=== PATIENT | female | born 1990 | race Caucasian/White ===

== ENCOUNTER → 2020-10-25 15:41 | Outpatient (CLI) | payer OTHER, SELFPAY ==
--- NOTE | 2020-10-25 15:42 | DI.US.S_ITS ---
PROCEDURE: US OB <= 14 WEEKS FETUS INDICATIONS: Viability early dating OUTSIDE/PRIOR DATING DATA: Last menstrual period (LMP): 08/02/2020 LMP-based estimated date of delivery (PEDRO): 05/09/2021. First dating scan (date and location): 10/25/2020. Estimated date of delivery (PEDRO) from first dating scan: 05/04/2021. TECHNIQUE: Real-time scanning was performed of the fetus and maternal pelvic organs, with image documentation. Endovaginal scanning was also performed to better visualize the fetus and maternal ovaries. COMPARISON: None. FINDINGS: Embryo: [place]-rump length measures 6.4 cm corresponding to 12 weeks 5 days with PEDRO of 05/04/2021. Embryonic heart rate measures 163 beats per minute. Measurement variability in dating: +/- 4 weeks by LMP, +/- 7 days by mean sac diameter (use before 6 weeks gestation if crown-rump length not able to be measured), +/- 5 days by crown-rump length (up to 8 weeks 6 days gestation), +/- 7 days by crown-rump length (up to 13 weeks 6 days gestation). Maternal organs: Ovaries within normal limits, with right corpus luteal cyst measuring 1.9 cm . IMPRESSION: 12 week 5 day single living IUP corresponding to ultrasound PEDRO of 05/04/2021. Dictated by: Lamonte C[place] Interpreted: Cary Dow MD on 10/26/2020 at 9:00 Approved by: Cary Dow M.D. on 10/26/2020 at 10:54
== END ==
PROVIDERS: PCP Family Medicine; Referring Provider Obstetrics & Gynecology; Visit Provider Obstetrics & Gynecology
DX: Z34.81 Encounter for supervision of other normal pregnancy, first trimester (principal); Z3A.12 12 weeks gestation of pregnancy
CPT/HCPCS: 76801

== ENCOUNTER → 2020-10-27 10:16 | Outpatient (CLI) | payer OTHER, SELFPAY ==
[2020-10-27 11:20] LABS: Add Manual Diff / Slide Review NO; Basophils Absolute Auto 0 /uL (0-100); Basophils Percent Auto 0.6 % (0-2); Eosinophils Absolute Auto 100 /uL (0-450); Eosinophils Percent Auto 1.9 % (2-4); Hematocrit 36.8 % (36-46); Hemoglobin 12.7 g/dL (12.0-16.0); Lymphocytes Absolute Auto 1500 /uL (1100-4500); Mean Corpuscular HGB Conc 34.6 % (30-36); Mean Corpuscular Hemoglobin 30.5 PG (26-34); Mean Corpuscular Volume 88.2 fL (80-100); Monocytes Absolute Auto 400 /uL (0-900); Monocytes Percent Auto 6.2 % (3-14); Neutrophils Absolute Auto 4700 /uL (1500-7000); Neutrophils Percent Auto 69.3 % (50-75); Platelet Count 317 X10^3/uL (150-400); Red Blood Cell Count 4.17 X10^6/uL (4.0-5.2); Red Cell Distribution Width 12.9 % (11.6-14.8); White Blood Cell Count 6.8 X10^3/uL (4.5-11.0)
[2020-10-27 11:24] LABS: Appearance Urine UA CLEAR; Bilirubin Urine UA NEGATIVE (NEGATIVE); Color Urine UA YELLOW; Glucose Urine UA NEGATIVE (Negative); Ketones Urine UA NEGATIVE (NEGATIVE); Leukocyte Esterase Urine UA NEGATIVE (NEGATIVE); Nitrite Urine UA NEGATIVE (Negative); Occult Blood Urine UA NEGATIVE (Negative); Protein Urine UA NEGATIVE (Negative); Specific Gravity Urine UA <=1.005 (1.000-1.035); Urobilinogen Urine UA 0.2 E.U./dL (0.2)
[2020-10-28 04:39] LABS: RPR Screen Non Reactive (Non Reactive)
[2020-10-28 06:08] LABS: Varicella IgG Antibody 451 index (Immune >165)
[2020-10-28 16:44] LABS: HIV 1 & 2 Ab/Ag 4th Gen Combo NEGATIVE (NEGATIVE); Hep C Virus Ab w/Reflex Quant NEGATIVE s/c (NEGATIVE); Hepatitis B Surface Antigen NEGATIVE s/c (NEGATIVE); Rubella Antibody IgG 23.9 IU/mL (>15)
== END ==
PROVIDERS: PCP Family Medicine; Referring Provider Obstetrics & Gynecology; Visit Provider Obstetrics & Gynecology
DX: Z34.81 Encounter for supervision of other normal pregnancy, first trimester (principal)
CPT/HCPCS: 36415; 80055; 81003; 86787; 86803; 86850; 86900; 86901; 87389

== ENCOUNTER → 2020-11-24 16:07 | Outpatient (CLI) | payer OTHER, SELFPAY ==
[2020-11-26 20:46] LABS: AFP Value 38.9 ng/mL (.); Gest Age on Col Date 16.3 weeks (.); Insulin Dep Diabetes No (.); OSBR Risk 1IN 6704 (.); Results Report (.); Test Results *Screen Negative* (.)
== END ==
PROVIDERS: PCP Family Medicine; Referring Provider Obstetrics & Gynecology; Visit Provider Obstetrics & Gynecology
DX: Z34.82 Encounter for supervision of other normal pregnancy, second trimester (principal); Z3A.16 16 weeks gestation of pregnancy
CPT/HCPCS: 36415; 82105

== ENCOUNTER → 2020-11-30 16:17 | Outpatient (CLI) | payer OTHER, SELFPAY ==
[2020-11-30] MEDS: COVID-19 VACC #1, MRNA(MOD) 100 MCG/0.5 ML VIAL IM (16:25)
== END ==
PROVIDERS: PCP Family Medicine; Visit Provider Internal Medicine
DX: Z23 Encounter for immunization (principal)
CPT/HCPCS: 0011A; 91301

== ENCOUNTER → 2020-12-23 15:51 | Outpatient (CLI) | payer OTHER, SELFPAY ==
--- NOTE | 2020-12-23 15:53 | DI.US.S_ITS ---
PROCEDURE: US OB >= 14 WEEKS FETUS INDICATIONS: Anatomy scan OUTSIDE/PRIOR DATING DATA: Last menstrual period (LMP): 08/02/2020 . LMP-based estimated date of delivery (PEDRO): 05/09/2021 . First dating scan (date and location): 12 weeks 5 days . Estimated date of delivery (PEDRO) from first dating scan: 05/04/2021. TECHNIQUE: Real-time scanning was performed of the fetus, with image documentation and biometric measurements. COMPARISON: None. FINDINGS: General: A single living intrauterine gestation is present. Presentation: Breech. Placenta: Placental position is posterior , without previa. Amniotic fluid index: 11.5 cm, normal range is 5-24 cm. heart rate: 147 beats per minute. Maternal cervical canal: 5.4 cm long. Normal lower limit is 2.5 cm. biometrics: Biparietal diameter: 4.8 centimeters: 20 weeks 3 days Head circumference: 18.4 centimeters: 20 weeks 5 days Abdominal circumference: 16.4 centimeters: 21 weeks 3 days Femur length: 3.5 centimeters: 20 weeks 0 days Estimated gestational age from initial scan: not applicable. Composite gestational age from present scan: 20 weeks 6 days Estimated weight and percentile: 403 grams, 45th percentile Measurement variability for biometric dating: +/- 7 days from 14 weeks to 15 weeks 6 days gestation, +/- 10 days from 16 weeks to 21 weeks 6 days gestation, +/- 2 weeks from 22 weeks to 27 weeks 6 days gestation, +/- 3 weeks for 28 weeks gestation or later. Anatomic survey: Neuro: Ventricles are non-dilated at less than 10 mm. Cisterna magna is normal at 3-11 mm. Cerebellum is normal in size and morphology. Nuchal skin fold: Normal at less than 6 mm between 14-21 weeks gestational age. Face: Nose and lips, facial profile are normal. Spine: No evidence for spina bifida. Heart: 4-chambered heart is present, with normal ventricular outflow tracts. Diaphragm: Diaphragm is intact. Stomach: Left-sided stomach is present. Kidneys: No hydronephrosis. Normal is less than 5 mm in 2nd trimester, less than 7 mm in 3rd trimester. Cord: 3-vessel cord has orthotopic insertion. Bladder: Normal in size. Extremities: All 4 extremities identified. IMPRESSION: 1. 21 week 1 day fetus. 2. Normal anatomy. 3. Normal ANTHONY measuring 11.5 centimeters. 4. Breech presentation. Dictated by: Juan Carvalho M.D. on 12/24/2020 at 0:00 Approved by: Juan Carvalho M.D. on 12/24/2020 at 0:09
== END ==
PROVIDERS: PCP Family Medicine; Referring Provider Obstetrics & Gynecology; Visit Provider Obstetrics & Gynecology
DX: Z34.82 Encounter for supervision of other normal pregnancy, second trimester (principal); Z3A.20 20 weeks gestation of pregnancy
CPT/HCPCS: 76811

== ENCOUNTER → 2020-12-29 08:56 | Outpatient (CLI) | payer OTHER, SELFPAY ==
[2020-12-29] MEDS: COVID-19 VACC #2, MRNA(MOD) 100 MCG/0.5 ML VIAL IM (09:05)
== END ==
PROVIDERS: PCP Family Medicine; Visit Provider Internal Medicine
DX: Z23 Encounter for immunization (principal)
CPT/HCPCS: 0012A; 91301

== ENCOUNTER → 2021-01-25 15:09 | Outpatient (CLI) | payer OTHER, SELFPAY ==
[2021-01-25 16:41] LABS: Hematocrit 32.4 % (36-46); Hemoglobin 11.2 g/dL (12.0-16.0)
[2021-01-25 16:59] LABS: GTT (PREG) 1 Hour PP 50gm Dose 98 mg/dL (76-139)
== END ==
PROVIDERS: PCP Family Medicine; Referring Provider Obstetrics & Gynecology; Visit Provider Obstetrics & Gynecology
DX: Z34.82 Encounter for supervision of other normal pregnancy, second trimester (principal); Z3A.26 26 weeks gestation of pregnancy
CPT/HCPCS: 36415; 82950; 85014; 85018

== ENCOUNTER → 2021-04-05 17:21 | Outpatient (CLI) | payer OTHER, SELFPAY ==
[2021-04-06 12:33] LABS: Strep Grp B PCR NEG for Grp B Strep
== END ==
PROVIDERS: PCP Family Medicine; Visit Provider Obstetrics & Gynecology
DX: Z34.83 Encounter for supervision of other normal pregnancy, third trimester (principal); Z3A.35 35 weeks gestation of pregnancy
CPT/HCPCS: 87653

== ENCOUNTER → 2021-05-02 08:50 | Outpatient (CLI) | payer OTHER, SELFPAY ==
[2021-05-02 16:51] LABS: COVID19 -Nasal RAPID Negative (Negative)
== END ==
PROVIDERS: PCP Family Medicine; Visit Provider Obstetrics & Gynecology
DX: Z20.822 Contact with and (suspected) exposure to COVID-19 (principal); Z01.812 Encounter for preprocedural laboratory examination
CPT/HCPCS: 87635

== ENCOUNTER 2021-05-03 05:39 | Inpatient (IN) | payer OTHER, SELFPAY ==
[2021-05-03] VITALS (8 sets, daily range): BP systolic 95–117; BP diastolic 60–78; PULSE 84–104; RESP 8–12; TEMP 36.1; O2SAT 98–99
[2021-05-03 06:55] LABS: Add Manual Diff / Slide Review NO; Basophils Absolute Auto 100 /uL (0-100); Basophils Percent Auto 0.9 % (0-2); Eosinophils Absolute Auto 100 /uL (0-450); Eosinophils Percent Auto 1.4 % (2-4); Hematocrit 35.7 % (36-46); Hemoglobin 12.3 g/dL (12.0-16.0); Lymphocytes Absolute Auto 1600 /uL (1100-4500); Lymphocytes Percent Auto 15.6 % (25-40); Mean Corpuscular HGB Conc 34.6 % (30-36); Mean Corpuscular Hemoglobin 30.8 PG (26-34); Mean Corpuscular Volume 88.9 fL (80-100); Monocytes Absolute Auto 700 /uL (0-900); Monocytes Percent Auto 6.5 % (3-14); Neutrophils Absolute Auto 7900 /uL (1500-7000); Neutrophils Percent Auto 75.6 % (50-75); Platelet Count 279 X10^3/uL (150-400); Red Blood Cell Count 4.01 X10^6/uL (4.0-5.2); White Blood Cell Count 10.4 X10^3/uL (4.5-11.0)
--- NOTE | 2021-05-03 07:31 | SUR.OPER ---
Supine on Padded OR bed, head on pillow, safety belt at thigh, arms secured on padded arm boards at <90 degrees abduction. Bump under right buttock. Legs uncrossed with pillow under knees, gel pad to heels, tape over blanket to lower legs.
--- NOTE | 2021-05-03 07:40 | P.HP_ITS ---
History of Present Illness History of Present Illness Date Patient Seen: 05/03/21 Time Patient Seen: 07:40 Chief complaint: C Section Narrative: Patient is a 31-year-old 2 para 1 at 39 weeks gestation, with a previous section, who presents for repeat section. Patient History Medical History (Updated 10/26/20 @ 16:11 by Tiffanie Dubon MD) Acne (~2002) Anemia (~2017) Anxiety (~2010) Carpal tunnel syndrome (~2017) Chicken pox Eczema (~2002) Herpes (~2007) Scoliosis Wears glasses Surgical History (Updated 10/26/20 @ 16:10 by Tiffanie Dubon MD) Anesthesia History of (~08/26/18) Family & Social History Family History (Updated 10/09/20 @ 20:51 by Ida Goodwin) Grandmother Alzheimer disease Grandfather History of emphysema Grandmother No problems noted. Tobacco & Substance use: Smoking Status Never smoker Meds Home Medications and Allergies Home Medications Medication Instructions Recorded Confirmed Type docosahexaenoic acid 200 mg 1 mg PO DAILY 09/20/20 05/03/21 History capsule ( DHA) prenat.vits,loi,[id number]-pdjm-ivdsw 1 tab PO DAILY 09/20/20 05/03/21 History valacyclovir 500 mg tablet 500 mg PO DAILY #30 tab 03/22/21 05/03/21 Rx (Valtrex) Allergies Allergy/AdvReac Type Severity Reaction Status Date / Time No Known Allergies Allergy Uncoded 05/03/21 06:55 Exam Vital Signs (past 8 hours): - 05/03/21 06:55 Blood Pressure 116/78 Narrative Exam Narrative: HEENT: No thyromegaly, no anterior cervical or supraclavicular lymphadenopathy. Lungs:Clear to auscultation bilaterally, no wheezes. Cardiovascular: Regular rate and rhythm, no murmurs, rubs, or gallops. Abdomen: Well-healed Pfannenstiel scars. No hepatosplenomegaly. No masses palpable. External genitalia: Normal Vagina: Normal Cervix: Nulliparous Extremities: No edema, 1+ DTRs Objective Labs Result Diagrams: 05/03/21 06:30 Labs: Laboratory Results - last 24 hr 05/03/21 05/03/21 06:30 06:30 WBC 10.4 RBC 4.01 Hgb 12.3 Hct 35.7 L MCV 88.9 MCH 30.8 MCHC 34.6 RDW 13.0 Plt Count 279 Neut % (Auto) 75.6 H Lymph % (Auto) 15.6 L [place] % (Auto) 6.5 Eos % (Auto) 1.4 L Baso % (Auto) 0.9 Neut # (Auto) 7900 H Lymph # (Auto) 1600 [place] # (Auto) 700 Eos # (Auto) 100 Baso # (Auto) 100 Blood Type A Positive Antibody Screen Negative Assessment & Plan Assessment & Plan narrative: Assessment: 31-year-old 2 para 1 at 39 weeks gestation with a previous section Plan: Repeat low-transverse section The risks, benefits, and alternatives to the procedure were explained to the patient. The risks including bleeding, infection, injury to the bowel, bladder, or ureters. She understands these risks and agrees to proceed. A full par Q was held and consent form was signed. COVID-19 COVID-19 status: Negative Result date/Date tested (Pos, Neg/Pending): 05/02/21 Time Spent With Patient Time with patient: 15-24 minutes
--- NOTE | 2021-05-03 07:42 | PM.PREOP ---
Pre-operative Note COVID-19 COVID-19 status: Negative Result date/Date tested (Pos, Neg/Pending): 05/02/21 Interval Note History & Physical reviewed/Exam performed by Physician: Yes Changes to H&P: No H&P completed within 30 days and has changed as indicated here:: 05/03/21
[2021-05-03] MEDS: CEFAZOLIN 1 GM VIAL 2 GM IV (07:55)
[2021-05-03] MEDS: TRIAMCINOLONE 40 MG/ML VIAL 80 MG IM (08:20)
[2021-05-03] MEDS: LACTATED RINGERS 1,000 ML 100 ML IV (08:22)
--- NOTE | 2021-05-03 08:59 | PM.OBCS.1 ---
Operative Date/Time/Diagnoses Date of procedure: 05/03/21 Time of procedure: 08:59 Pre-op diagnosis: 39 weeks gestation Previous section Keloid scar Post-op diagnosis: same Procedure & Clinicians Procedure: Repeat low-transverse section Excision of scar Same procedure as scheduled: Yes Indications: 39 weeks gestation Previous section Keloid scar Surgeon: Tiffanie Dubon Click Yes if Unassisted: No Supervisor Denture Department: Alex Beaulieu Reason for Supervisor Denture Department: The executive assistant to president retracted and cut suture. He assisted with delivery of the baby and closure of the abdomen. He closed the contralateral fascial incision. Anesthesia Type: Spinal (With Duramorph) Operative Notes Findings: Live male infant in the [place] presentation Loose nuchal cord x1 Normal uterus, tubes, and ovaries Keloid of the Pfannenstiel scar Scar tissue in the subcutaneous layer and on the fascial layer Closure Type: primary Specimen(s): cord pH and placenta Intraoperative meds administered: Duramorph and Ketorolac Applied: Catheter (To continuous drainage) Estimated Blood Loss (mL): 400 Blood products transfused: none Procedure in detail: The patient was taken to the operating room where she was placed in the seated position. Spinal anesthesia with Duramorph was administered. The patient was then placed in the dorsal supine position with a leftward tilt. She was prepped and draped in the usual sterile fashion. A timeout was performed. After spinal analgesia was found to be adequate, an elliptical incision was made around the previous Pfannenstiel incision and the incision with a keloid excised. The incision was then carried through to the underlying layer of fascia. The fascia was nicked in the midline, and the incision extended bilaterally with the Vega scissors. The superior aspect of the fascial incision was grasped with a Ventress clamps, elevated, and the underlying rectus muscles dissected off sharply and bluntly. Attention was then turned to the inferior aspect of this incision which in a similar fashion was grasped with a Ventress clamps, elevated, and the underlying rectus muscles dissected off sharply and bluntly. The rectus muscles were in the midline. The peritoneum was identified, grasped between 2 hemostats, and entered sharply with the Metzenbaum scissors. This incision was extended superiorly and inferiorly with good visualization of the bladder. The bladder blade was inserted. The vesicouterine peritoneum was identified, grasped with the pickup, and entered sharply with the Metzenbaum scissors. This incision was extended bilaterally, and the bladder flap was created digitally. The bladder blade was reinserted. The lower uterine segment was incised in a transverse fashion with the scalpel. Upon entering the amniotic sac there was moderate amount of clear amniotic fluid. The 's head was delivered without difficulty. A loose nuchal cord x1 was reduced. The nose and mouth were suctioned with bulb suction. The remainder of the body delivered without difficulty. The cord was double clamped and cut after 1 minute. The was handed off to waiting RN and RT. The placenta was delivered manually. The uterus was cleared of all clots and debris. A ring forcep was used to open the cervix. The uterine incision was repaired with #1 chromic in a running interlocking fashion, and a second layer the same suture was used for an imbricating layer. Hemostasis was achieved. The tubes and ovaries were examined and were found to be normal. The gutters were cleared of all clots and debris. The bladder flap was reapproximated using 2-0 Vicryl in a running fashion. The parietal peritoneum was closed using 2-0 Vicryl in a running fashion. The fascia was reapproximated using 0 Vicryl in a running fashion. The subcutaneous layer was copiously irrigated with warm normal saline. 5 simple interrupted sutures of 3-0 Vicryl were placed to reapproximate the subcutaneous layer. The skin was closed with 4-0 Monocryl in a subcuticular fashion. 10 cc of a 10 mg Kenalog solution in 10 cc of normal saline was injected along the length of the incision with approximately 1 milligram/centimeter. Steri-Strips were placed. An Aquacel dressing was placed. The uterus was expressed of a small amount of old blood. Sponge, lap, and instrument counts were correct x-2. The patient tolerated the procedure well, and was taken to PACU in stable condition. Complications: none Baby 1: Gender: Male Presentation: vertex Position: Left Occiput Anterior Placental Delivery Description: Spontaneous Cord Vessel Description: 3 Vessels, Nuchal Cord, Loose and Reduced score (1 min): 8 score (5 min): 9 weight: 6 lb 11 oz Post-operative Condition: stable Disposition: PACU Aftercare: routine postop
[2021-05-03] MEDS: ONDANSETRON 4 MG/2 ML INJ IV (09:06)
[2021-05-03] MEDS: OXYCODONE/ACETAMINOPHEN 5/325 TABLET 1 TAB PO (09:17)
--- NOTE | 2021-05-03 09:38 | SUR.PHASEI ---
0901 Pt to PACU after spinal anesthesia with Dr Babcock. Pt awake, alert, breathing unassisted. Complains of very slight nausea.
--- NOTE | 2021-05-03 09:45 | SUR.PHASEI ---
Pt transferred to room 5, left with Tiffanie in stable condition, fundus check preformed by her, VSS. Bed locked, SCD's digital production artist light in reach.
[2021-05-03] MEDS: diphenhydrAMINE 50 MG/ML VIAL 25 MG IV ×3 (11:34→21:51)
[2021-05-03] MEDS: KETOROLAC 30 MG/ML VIAL IV ×2 (15:35→21:42)
[2021-05-04] MEDS: KETOROLAC 30 MG/ML VIAL IV (04:02)
[2021-05-04 06:49] LABS: Hematocrit 35.4 % (36-46); Hemoglobin 12.3 g/dL (12.0-16.0)
[2021-05-04] MEDS: PRENATAL VIT,CALC/IRON/FOLIC 1 TABLET 1 TAB PO (08:29)
[2021-05-04] MEDS: DOCUSATE 100 MG CAPSULE 200 MG PO (08:29)
[2021-05-04] MEDS: ACETAMINOPHEN 325 MG TABLET 650 MG PO ×4 (08:30→21:29)
[2021-05-04] MEDS: OXYCODONE IR 5 MG TABLET PO ×4 (09:45→21:32)
[2021-05-04] MEDS: IBUPROFEN 600 MG TABLET PO ×4 (09:45→21:30)
--- NOTE | 2021-05-04 13:20 | PM.OBPN.1 ---
Subjective - OB Subjective Patient comments: no complaints, pain well controlled and tolerating diet baby status: doing well and nursing well feeding status: exclusively breast feeding Date Patient Seen: 05/04/21 Time Patient Seen: 08:00 Interval history: Patient has voided without the catheter Exam Vital Signs (past 8 hours): Oxygen Delivery Method Room Air Narrative Exam Narrative: Generally: Patient is sitting up in bed, no acute distress Lungs: Clear to auscultation bilaterally Cardiovascular: Regular rate and rhythm Fundus: Firm at U-1 Incision: Clean dry and intact with Aquacel dressing Extremities: Trace edema, negative Homans Objective Labs Result Diagrams: 05/04/21 06:43 Labs: Laboratory Results - last 24 hr 05/04/21 06:43 Hgb 12.3 Hct 35.4 L Assessment & Plan Plan day: 1 plan OB: routine postop care Time Spent With Patient Time: Total time spent is greater than 50% in coordination of care (as documented) at patient's floor/unit and/or counseling patient: Time with patient: less than 15 minutes
[2021-05-05] MEDS: OXYCODONE IR 5 MG TABLET PO ×2 (01:27→09:52)
[2021-05-05] MEDS: ACETAMINOPHEN 325 MG TABLET 650 MG PO ×2 (03:27→13:10)
[2021-05-05] MEDS: IBUPROFEN 600 MG TABLET PO ×2 (03:27→09:52)
--- NOTE | 2021-05-05 08:10 | P.DS_ITS ---
Discharge Providers Provider Date of admission: 05/03/21 05:39 Discharge Date: 05/05/21 Primary care physician: Alvaro Rubio MD Consults: 05/03/21 10:52 Consult to Jig And Fixture Repairer Routine Comment: Discharge provider: Tiffanie Dubon MD Summary Hospital Course Date Patient Seen: 05/05/21 Time Patient Seen: 08:10 Diagnoses: 39 weeks gestation Previous section Hospital Course: Patient is a 31-year-old 2 para 2 who underwent a repeat low-transverse section on May 03, 2021. This was scheduled at 39 weeks gestation. The procedure was uncomplicated. Her postoperative course has been unremarkable. She is tolerating a diet, ambulating independently, pain well controlled, voided without the catheter, no nausea or vomiting. Peripartum Data Delivery Method: Section Laceration Description: None Episiotomy description: None Procedures: Spinal anesthesia Repeat low-transverse section complications: none [place] 1: Gender: Male Disposition of : home Status at Discharge Cognitive/behavioral status at discharge: oriented Functional status at discharge: independent ambulation Overall status at discharge: patient is progressing back to baseline Time Spent with Patient Time attestation: Total time spent providing and/or coordinating discharge services: Time spent: Less than 30 minutes Objective Labs Result Diagrams: 05/04/21 06:43 Exam Vital Signs (past 8 hours): Oxygen Delivery Method Room Air Narrative Exam Narrative: Generally: Patient is sitting up in bed, no acute distress Lungs: Clear to auscultation bilaterally Cardiovascular: Regular rate and Fundus: Firm at U -1 Incision: Clean dry and intact with Aquacel dressing Extremities: Negative Homans, no edema Discharge Plan Discharge Plan Patient Disposition: Home Provider Discharge Comment: Call with fever, chills, redness or drainage around the incision, or bleeding vaginally more than a pad in an hour Tylenol 650 mg every 6 hours Ibuprofen 600 mg every 6 hours Stool softener daily until bowels returned to normal Discharge orders & Medications Prescriptions: New oxycodone 5 mg tablet 5 mg PO Q4H PRN (Reason: pain) Qty: 20 RF: 0 Continued prenat.vits,loi,[id number] Tablet 1 tab PO DAILY RF: 0 DHA 200 mg capsule 1 mg PO DAILY RF: 0 Discontinued valacyclovir [Valtrex] 500 mg tablet 500 mg PO DAILY Qty: 30 RF: 1 Follow up/Referrals: Tiffanie Dubon MD [Physician] - 1 Week (Aquacel dressing removal) Diet/Activity/Treatments Diet: Regular Activity: No heavy lifting Skin/Wound/Dressing Care Report to your healthcare provider any signs of infection, such as:: chills, fever, increased pain, unusual drainage and unusual redness Dressing: Do not removed Visit Report/Discharge Packet Instructions: DI for , DI for Prescription Opioid Use Discharge Data Primary Care Provider: Alvaro Rubio
[2021-05-05] MEDS: PRENATAL VIT,CALC/IRON/FOLIC 1 TABLET 1 TAB PO (09:52)
[2021-05-05] MEDS: DOCUSATE 100 MG CAPSULE 200 MG PO (09:52)
--- NOTE | 2021-05-07 10:25 | PM.OBDS.1 ---
Discharge Providers Provider Date of admission: 05/03/21 05:39 Discharge Date: 05/05/21 Primary care physician: Alvaro Rubio MD Consults: 05/03/21 10:52 Consult to Land[employer]ship Routine Comment: Discharge provider: Tiffanie Dubon MD Summary Hospital Course Date Patient Seen: 05/05/21 Time Patient Seen: 09:30 Diagnoses: 39 weeks gestation Previous section Repeat low-transverse section Hospital Course: Patient is a 31-year-old 2 para 2 who presented on May 03, 2021 for a scheduled repeat section. She underwent this procedure without complication. Her postoperative course was unremarkable and she was discharged home on postop day # 2 with pain well controlled, bleeding tapering, tolerating a diet, voided without catheter, ambulating without assistance, and no nausea or vomiting Peripartum Data Infant Delivery Method: Section Laceration Description: None Episiotomy description: None Procedures: Spinal anesthesia Repeat low-transverse section complications: none [place] 1: Gender: Male Disposition of : home Status at Discharge Cognitive/behavioral status at discharge: oriented Functional status at discharge: independent ambulation Overall status at discharge: patient is progressing back to baseline Time Spent with Patient Time attestation: Total time spent providing and/or coordinating discharge services: Time spent: Less than 30 minutes Objective Labs Result Diagrams: 05/04/21 06:43 Exam Vital Signs (past 8 hours): Oxygen Delivery Method Room Air Narrative Exam Narrative: Generally: Patient is sitting up in bed, holding infant, no acute distress Lungs: Clear to auscultation bilaterally Cardiovascular: Regular rate and rhythm Fundus: Firm at U -1 Incision: Clean dry and intact with Aquacel dressing Extremities: Negative Homans, no edema Discharge Plan Discharge Plan Patient Disposition: Home Provider Discharge Comment: Call with fever, chills, redness or drainage around the incision, or bleeding vaginally more than a pad in an hour Tylenol 650 mg every 6 hours Ibuprofen 600 mg every 6 hours Stool softener daily until bowels returned to normal Discharge orders & Medications Prescriptions: New oxycodone 5 mg tablet 5 mg PO Q4H PRN (Reason: pain) Qty: 20 RF: 0 Continued prenat.vits,loi,tyd-[id number]-brilt Tablet 1 tab PO DAILY RF: 0 DHA 200 mg capsule 1 mg PO DAILY RF: 0 Discontinued valacyclovir [Valtrex] 500 mg tablet 500 mg PO DAILY Qty: 30 RF: 1 Follow up/Referrals: Tiffanie Dubon MD [Physician] - 1 Week (Follow up with Dr. Dubon on SundayMay 10 at 3:15 for aquacel dressing removal. Routine post visit scheduled for June 15 at 0830.) Diet/Activity/Treatments Diet: Regular Activity: No heavy lifting Skin/Wound/Dressing Care Report to your healthcare provider any signs of infection, such as:: chills, fever, increased pain, unusual drainage and unusual redness Dressing: Do not removed Visit Report/Discharge Packet Instructions: DI for , DI for Prescription Opioid Use Stand Alone Forms: Discharge: Care Discharge Data Primary Care Provider: Alvaro Rubio
== END 2021-05-05 13:40 | disposition home or self-care (01) | DRG 788 ==
PROVIDERS: Admitting Provider Obstetrics & Gynecology; PCP Family Medicine; Referring Provider Obstetrics & Gynecology; Visit Provider Obstetrics & Gynecology
PROC: 10D00Z1 Extraction of Products of Conception, Low, Open Approach (ICD-10-PCS; CPT 59514; principal; 2021-05-03 07:45)
DX: O34.219 Maternal care for unspecified type scar from previous cesarean delivery (principal); Z3A.39 39 weeks gestation of pregnancy; Z37.0 Single live birth; O69.81X0 Labor and delivery complicated by cord around neck, without compression, not applicable or unspecified; L91.0 Hypertrophic scar
CPT/HCPCS: 36415; 59050; 59510; 59514; 85014; 85018; 85025; 86850; 86900; 86901; J0690; J1200; J1885; J2250; J2274; J2405; J2590

== ENCOUNTER → 2022-02-07 09:48 | Outpatient (CLI) | payer OTHER, SELFPAY ==
[2022-02-07 10:39] LABS: Add Manual Diff / Slide Review NO; Basophils Absolute Auto 0 /uL (0-100); Basophils Percent Auto 0.9 % (0-2); Eosinophils Absolute Auto 200 /uL (0-450); Eosinophils Percent Auto 4.8 % (2-4); Hematocrit 38.8 % (36-46); Hemoglobin 13.5 g/dL (12.0-16.0); Lymphocytes Absolute Auto 900 /uL (1100-4500); Lymphocytes Percent Auto 22.1 % (25-40); Mean Corpuscular HGB Conc 34.9 % (30-36); Mean Corpuscular Hemoglobin 30.7 PG (26-34); Monocytes Absolute Auto 400 /uL (0-900); Monocytes Percent Auto 10.7 % (3-14); Neutrophils Absolute Auto 2400 /uL (1500-7000); Neutrophils Percent Auto 61.5 % (50-75); Platelet Count 288 X10^3/uL (150-400); Red Blood Cell Count 4.41 X10^6/uL (4.0-5.2); Red Cell Distribution Width 12.5 % (11.6-14.8); White Blood Cell Count 3.8 X10^3/uL (4.5-11.0)
[2022-02-07 11:15] LABS: Alanine Aminotransferase 22 IU/L (<35); Albumin 4.1 g/dL (3.5-5.0); Albumin Globulin Ratio 1.5 (1.0-2.8); Alkaline Phosphatase 62 U/L (38-126); Aspartate Aminotransferase 29 IU/L (14-36); BUN Creatinine Ratio 14.1 (6-22); Bilirubin Total 0.3 mg/dL (0.2-1.3); Blood Urea Nitrogen 10 mg/dL (7-17); Calcium 8.9 mg/dL (8.4-10.2); Carbon Dioxide 26 mmol/L (22-32); Chloride 104 mmol/L (98-107); Estimated Glomerular Filt Rate > 60 mL/min (>60); Globulin 2.7 g/dL (1.7-4.1); Glucose 83 mg/dL (70-100); HEMOLYSIS < 15 (0-50); Potassium 4.2 mmol/L (3.4-5.1); Sodium 136 mmol/L (137-145); Total Protein 6.8 g/dL (6.3-8.2)
[2022-02-07 11:21] LABS: Vitamin D 25 Hydroxy (D3) 38.1 ng/mL (30.0-100.0)
[2022-02-07 11:42] LABS: TSH w/ Reflex to FT4 1.21 uIU/mL (0.47-4.68)
[2022-02-07 12:00] LABS: Vitamin B12 475 pg/mL (239-931)
== END ==
PROVIDERS: PCP Family Medicine; Referring Provider Family Medicine; Visit Provider Family Medicine
DX: D64.9 Anemia, unspecified (principal); F41.9 Anxiety disorder, unspecified; R53.83 Other fatigue
CPT/HCPCS: 36415; 80053; 82306; 82607; 84443; 85025